=== PATIENT | male | born 1965 | race Caucasian/White ===

== ENCOUNTER 2021-12-28 14:47 | Emergency (ER) | payer OTHER ==
[2021-12-28 15:43] LABS: ALBUMIN 4.1 g/dL (3.4-5.0); BUN/CREAT RATIO (CALC) 11.2 RATIO; CREATININE 0.8 mg/dL (0.67-1.17); GLOBULIN (CALCULATION) 3.5 g/dL; MAGNESIUM 2.1 mg/dL (1.8-2.4); POTASSIUM 4.9 mmol/L (3.5-5.1); TOTAL PROTEIN 7.6 g/dL (6.4-8.2)
[2021-12-28 16:18] LABS: BASOPHIL 0.3 % (0-2); EOSINOPHIL 0.7 % (0-5); HGB 15.4 g/dl (13.2-18.0); LYMPHOCYTE 21.3 % (15-48); MCH 32.6 pg (25.0-31.0); MCHC 34.2 g/dL (32.0-36.0); MCV 95.1 fL (78.0-100.0); MONOCYTE 9.4 % (0-12); MPV 9.2 fL (6.0-9.5); NRBC 0; PLT 339 K/uL (150-400); RBC 4.73 M/uL (4.70-6.00); RDW 12.9 % (11.5-14.0); WBC 7.6 K/uL (4.0-10.5)
[2021-12-28 16:27] LABS: PTT 25.2 SECONDS (24.9-34.6)
[2021-12-28 16:29] LABS: INR 1.05 (0.9-1.2); PROTHROMBIN TIME 13.4 SECONDS (11.9-13.9)
[2021-12-28 16:36] LABS: BILIRUBIN NEGATIVE (NEGATIVE); BLOOD NEGATIVE Ery/uL (NEGATIVE); CLARITY CLEAR (CLEAR); COLOR YELLOW (YELLOW); GLUCOSE (U) NORMAL (NORMAL); LEUKOCYTES NEGATIVE Leu/uL (NEGATIVE); NITRITE NEGATIVE (NEGATIVE); PROTEIN NEGATIVE (NEGATIVE); UROBILINOGEN 0.2 mg/dL (0.2-1.0); pH 7.5 (5.0-9.0)
== END 2021-12-29 22:18 | disposition other institution (70) ==
LOC: FER 14:47
PROVIDERS: Emergency Medicine
DX: R07.89 Other chest pain (principal); R42 Dizziness and giddiness; R11.2 Nausea with vomiting, unspecified; Z20.822 Contact with and (suspected) exposure to COVID-19; Z88.5 Allergy status to narcotic agent; Z88.8 Allergy status to other drugs, medicaments and biological substances
CPT/HCPCS: 36415; 71045; 72128; 72131; 80053; 81003; 83735; 84443; 84484; 85025; 85610; 85730; 93005; J1200; J2405; J2550; J7030; Q9967; U0002